=== PATIENT | male | born 1975 | race Caucasian/White ===

== ENCOUNTER 2017-11-09 20:35 | Emergency (ER) | payer OTHER, MEDICAID, SELFPAY ==
[2017-11-09 20:37] VITALS: BP 126/94; PULSE 98; RESP 22; TEMP 37; O2SAT 96; BMI 32.1
[2017-11-09] MEDS: DiphenhydrAMINE 50 MG/ML Syringe 25 MG IV (21:05)
[2017-11-09] MEDS: MethylPREDNISolone 125 MG/2 ML Vial IV (21:06)
[2017-11-09 21:39] VITALS: BP 147/90; PULSE 83; RESP 18; O2SAT 98
[2017-11-09] MEDS: Acetaminophen 500 MG Tablet 1000 MG PO (21:42)
--- NOTE | 2017-11-09 22:00 | ED.DCSUM_ITS ---
- ER Visit Summary Date of Service: 11/09/17 Chief Complaint: Bee sting History of Present Illness: The patient is a 42 M who says he has done by a bee about 1 hour ago. He was done on the head face and arm. He does have a history of an allergy to bee stings. His EpiPen is so he did not use it. He states he has itching, headache, throat feels tight and itchy. Denies any shortness of breath or tongue swelling. Physical Examination: Vital signs reviewed. HEENT exam unremarkable. Heart is regular rate and rhythm without murmurs. Lungs are clear to auscultation. Abdomen is soft and nontender. Extremities reveal no edema. Skin exam normal. Neurologic exam normal. Test Results: None performed Emergency Department Course and Treatment: Patient was given Solu-Medrol and IV Benadryl. He feels much better except for the headache. He was given Tylenol for this. He will continue Tylenol at home as needed for pain. He will take Benadryl at home. He will need to follow-up with his PCP Treatment Plan: [] Disposition: Discharge Impression: Allergic reaction to bee sting This note was generated with Intellik[employer] dictation software. It may contain incorrect words, spelling, and punctuation that were not noted in review of the chart prior to signing ED Disposition - Plan for ED Patient: Chief Complaint: Allergic Reaction Referrals: Care Physician,No Primary [Primary Care Provider] -
--- NOTE | 2017-11-09 22:00 | ED.DEP ---
ED Disposition - Plan for ED Patient: Disposition: Home or Assisted Living Chief Complaint: Allergic Reaction Instructions: ED Bite Sting Insect Gen Allergic React Referrals: Care Physician,No Primary [Primary Care Provider] -
[2017-11-09 22:12] VITALS: BP 158/99; PULSE 79; RESP 20; O2SAT 97
== END 2017-11-09 22:18 | disposition home or self-care (01) ==
PROVIDERS: Emergency Provider Emergency Medicine
DX: T63.441A Toxic effect of venom of bees, accidental (unintentional), initial encounter (principal); L29.9 Pruritus, unspecified; Z79.899 Other long term (current) drug therapy
CPT/HCPCS: 96374; 96375; 99284; A4216

== ENCOUNTER → 2018-02-15 15:32 | Outpatient (CLI) | payer MEDICAID, SELFPAY ==
[2018-02-15 17:39] LABS: Absolute Neutrophil Count 3.7 X10^3/uL (2.0-7.7); Basophil# 0.02 X10^3/uL; Basophil% 0.3 % (0-1); Hematocrit 50.3 % (40-54); Hemoglobin 16.8 g/dl (13.0-16.5); Lymphocyte % 33.3 % (19-41); Mean Corp Hgb Conc 33.4 g/gl (32-36); Mean Corpuscular Hgb 29.6 pg (27.0-32.0); Mean Corpuscular Volume 88.7 fL (80-94); Mean Platelet Vol. 10.4 fl (6.2-12.0); Monocyte# 0.46 X10^3/uL; Neutrophil # 3.71 X10^3/uL (2.7-7.7); Neutrophil % 56.1 % (47-70); POSITIVE COUNT NO; POSITIVE DIFFERENTIAL NO; POSITIVE MORPHOLOGY NO; Platelet Count 236 K/mm3 (150-450); RBC Distribution Width CV 12.2 % (11.6-14.6); RBC Distribution Width SD 38.7 fl (35.1-43.9); Red Blood Count 5.67 M/mm3 (4.6-6.2); White Blood Count 6.6 K/mm3 (4.4-11.0)
[2018-02-15 17:59] LABS: ALB/GLOB Ratio 0.9 RATIO (0.9-2.4); AST(SGOT) 29 U/L (15-37); Alanine Aminotransfer ALT/SGPT 50 U/L (16-61); Albumin, Serum 3.8 g/dL (3.2-5.0); Alkaline Phosphatase 68 U/L (45-117); Anion Gap 9 (5-15); BUN 17 mg/dL (7-18); BUN/Creat Ratio 15.9 RATIO (10-20); Calcium,Total 8.9 mg/dL (8.5-10.1); Chloride 106 mmol/L (98-107); Cholesterol 204 mg/dL (200); Creatinine, Serum 1.07 mg/dL (0.70-1.30); EST Glomerular Filtration Rate 80 mL/min (>60); Est Glom Filt Rate - Afr Amer 97 mL/min (>60); Globulin 4.4 g/dL (2.2-4.2); Glucose 86 mg/dL (74-106); High Density Lipoprotein 39 mg/dL; Protein, Total 8.2 g/dL (6.4-8.2); Sodium Level 139 mmol/L (136-145); Triglycerides 177 mg/dL; Very Low Density Lipoprotein 35 mg/dL (5-40)
== END ==
PROVIDERS: Visit Provider Family Medicine
DX: K21.9 Gastro-esophageal reflux disease without esophagitis (principal); E66.9 Obesity, unspecified; F41.9 Anxiety disorder, unspecified
CPT/HCPCS: 36415; 80053; 80061; 84443; 85025

== ENCOUNTER → 2018-04-05 14:21 | Outpatient (CLI) | payer OTHER, SELFPAY ==
--- NOTE | 2018-04-05 14:25 | RAD_ITS ---
STUDY: X-RAY - RIGHT SHOULDER REASON FOR EXAM: Male, 42 years old. Right shoulder pain. TECHNIQUE: 4 view(s) of the shoulder. COMPARISON: None. FINDINGS: Normal glenohumeral articulation. Normal acromioclavicular joint. Normal acromion. Normal humeral head and visualized proximal humerus. The soft tissue structures are unremarkable. There is no demonstrated fracture. Normal visualized pulmonary apex. RAD/Shoulder min 2 Views IMPRESSION: Normal x-ray examination of the shoulder. Electronically Signed: Donovan Mccarthy MD at 23:58 EST , Service support ,
== END ==
PROVIDERS: Family Provider Family Medicine; PCP Family Medicine; Referring Provider Family Medicine; Visit Provider Family Medicine
DX: M75.40 Impingement syndrome of unspecified shoulder (principal)
CPT/HCPCS: 73030

== ENCOUNTER → 2019-05-03 09:44 | Outpatient (CLI) | payer OTHER, SELFPAY ==
[2019-04-22 10:17] VITALS: BMI 32.1
--- NOTE | 2019-05-03 09:48 | RAD_ITS ---
STUDY: X-RAY CHEST REASON FOR EXAM: Male, 43 years old. acute bronchitis TECHNIQUE: Frontal and lateral views of the chest were performed COMPARISON: None. FINDINGS: The lungs are clear and expanded. There is no demonstrated pleural abnormality. Normal size heart. Normal mediastinum and reinier. Normal visualized pulmonary arteries. Normal visualized aortic arch and descending thoracic aorta. Normal visualized thoracic spine. Normal visualized ribs, clavicles, and shoulders. There is no demonstrated abnormality of the visualized soft tissue structures of the upper abdomen. RAD/Chest PA and Lateral IMPRESSION: Normal x-ray examination of the chest. Electronically Signed: Jewels Zeng, at 16:52 EST Tel , Service support ,
== END ==
PROVIDERS: PCP Family Medicine; Referring Provider Family Medicine; Visit Provider Family Medicine
DX: J20.9 Acute bronchitis, unspecified (principal)
CPT/HCPCS: 71046

== ENCOUNTER → 2019-08-16 | Outpatient (CLI) | payer MEDICAID, SELFPAY ==
[2019-04-22 10:17] VITALS: BMI 32.1
--- NOTE | 2019-08-16 16:59 | RAD_ITS ---
STUDY: X-RAY - LEFT SHOULDER REASON FOR EXAM: Male, 44 years old. left shoulder pain TECHNIQUE: 4 view(s) of the shoulder. COMPARISON: None. FINDINGS: Normal glenohumeral articulation. Normal acromioclavicular joint. Normal acromion. Normal humeral head and visualized proximal humerus. The soft tissue structures are unremarkable. Normal visualized pulmonary apex. RAD/Shoulder min 2 Views IMPRESSION: Normal x-ray examination of the shoulder. Electronically Signed: Adrián Escudero MD at 21:47 EDT Tel , Service support ,
== END | disposition home or self-care (01) ==
LOC: MTRAD 16:57
PROVIDERS: PCP Family Medicine; Referring Provider Family Medicine; Visit Provider Family Medicine
DX: M25.512 Pain in left shoulder (principal)
CPT/HCPCS: 73030

== ENCOUNTER 2021-05-26 12:04 | Outpatient (CLI) | payer OTHER, MEDICAID, SELFPAY ==
--- NOTE | 2021-05-26 12:08 | RAD_ITS ---
STUDY: X-RAY CHEST REASON FOR EXAM: Male, 45 years old. CHEST PAIN PNEUMONIA POST COVID SYNDROME TECHNIQUE: XR Chest 2 Views COMPARISON: None FINDINGS: There is no demonstrated pleural abnormality. Normal size heart. Normal mediastinum and reinier. Normal visualized pulmonary arteries. Normal visualized aortic arch and descending thoracic aorta. There are diffuse degenerative changes of the visualized thoracic spine. There is degenerative osteoarthritis of the bilateral shoulders. There is no demonstrated abnormality of the visualized soft tissue structures of the upper abdomen. RAD/Chest PA and Lateral IMPRESSION: There are no acute findings. Electronically Signed: Noah Arellaon MD at 15:21 EST ,
== END 2021-05-26 23:59 | disposition home or self-care (01) ==
LOC: MTRAD 12:07
PROVIDERS: PCP Family Medicine; Referring Provider Family Medicine; Visit Provider Family Medicine
DX: U09.9 Post COVID-19 condition, unspecified (principal)
CPT/HCPCS: 71046

== ENCOUNTER → 2021-12-09 | Outpatient (CLI) | payer OTHER, MEDICAID, SELFPAY ==
--- NOTE | 2021-12-09 12:45 | MRI_ITS ---
STUDY: MRI LEFT SHOULDER REASON FOR EXAM: Left shoulder pain from dislocation 11/23/2021. TECHNIQUE: Standardized fat and water weighted pulse sequences were obtained in all 3 orthogonal planes. COMPARISON: Radiographs 08/16/2019. FINDINGS: Normal supraspinatus tendon. Normal infraspinatus tendon. Normal subscapularis tendon. Normal teres minor tendon. Normal supraspinatus muscle. Normal infraspinatus muscle. Normal subscapularis muscle. There is a strain of the teres minor muscle (T2 coronal images 18, 19). There is a small glenohumeral joint effusion. There is a reverse Hill-Sachs lesion with bone edema (proton-density axial images 12-14). Normal biceps labral complex. Normal intracapsular long biceps tendon. There is a posterior labral tear (proton-density axial images 1212-16). There is a bone contusion of the posterior glenoid (T2 coronal images 12, 13). There is a sprain of the posterior aspect of the inferior glenohumeral ligament (T2 coronal images 12-14). There is acromioclavicular arthrosis with mild hypertrophic changes effacing subacromial fat (T2 sagittal image 7). There is a Type II morphology (curved), with a neutral orientation. There is no subacromial-subdeltoid bursal fluid. Normal visualized coracohumeral and coracoacromial ligaments. Normal deltoid muscle. Normal trapezius muscle. MRI/Upper Ext Joint Only(Routine) IMPRESSION: Posterior labral tear and bone contusion of the posterior glenoid. Reverse Hill-Sachs lesion. Sprain of the posterior aspect of the inferior glenohumeral ligament. Teres minor muscle strain. Acromioclavicular arthrosis. Small glenohumeral joint effusion. Electronically Signed: Tobias Leigh MD at 13:58 EDT ,
== END | disposition home or self-care (01) ==
LOC: MRI 12:35
PROVIDERS: PCP Family Medicine; Referring Provider Specialist; Visit Provider Specialist
DX: S43.025A Posterior dislocation of left humerus, initial encounter (principal)
CPT/HCPCS: 73221

== ENCOUNTER 2021-12-11 09:30 | Outpatient (RCR) | payer OTHER, MEDICAID, SELFPAY ==
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
--- NOTE | 2022-01-20 16:04 | HP.PT.NRP ---
GINNA SANATNA was seen in my office for initial evaluation on 12/03/21. The following Plan of Care was established for this patient: Initial Frequency: 2-3x /Week Initial Duration: 4-6 Weeks Patient/Client Instruction: Educate patient on: Condition, Plan of Care For the Purpose of:: To decrease pain, To increase ROM, To improve muscle performance and motor function, To improve ability to perform ADL's, To increase tolerance to activity/condition/position, To improve ability of physical actions for home/community/work/leisure, To improve health of tissue, To decrease soft tissue restriction, To increase flexibility/ROM, To reduce risk of recurrence, To prevent re-injury, To improve tolerance to ADL's Therapeutic Exercise to Include: Strength training, Passive ROM, Active ROM, Scapular Strength/Stabilization For the Purpose of:: To decrease pain, To increase ROM, To improve muscle performance and motor function, To improve ability to perform ADL's, To increase tolerance to activity/condition/position, To improve performance and independence with ADL's, To improve ability of physical actions for home/community/work/leisure, To improve health of tissue, To decrease soft tissue restriction, To increase flexibility/ROM, To prevent re-injury, To improve tolerance to ADL's TENS: Yes IF ES: Yes Cryotherapy (ice pack, ice massage): Yes Thermo therapy (hot pack): Yes Ultrasound (thermal/non thermal): Yes For the Purpose of:: To decrease pain, To increase ROM, To improve nutrient delivery to tissue, To increase oxygenation perfusion, To improve health of tissue, To decrease soft tissue restriction This patient was last seen in our office . Pertinent comments regarding their Physical therapy will appear below: Patient had posterior labral tear thus underwent surgery thus d/c At this point I will be discontinuing this patient from physical therapy. I would be happy to see this patient again in the future if found appropriate by the physician. Thank you! Jovanny Escobar, PT, Cert MDT, OCS Balance/Gait/Functional tests - Balance/Special Test Scores Quick DASH Score: 90.9075
== END 2021-12-11 19:00 | disposition home or self-care (01) ==
LOC: PT 09:30
PROVIDERS: PCP Family Medicine; Referring Provider Specialist; Visit Provider Specialist
DX: S43.025 Posterior dislocation of left humerus (principal); X58.XXXD Exposure to other specified factors, subsequent encounter
CPT/HCPCS: 97161

== ENCOUNTER 2022-01-06 12:42 | Day surgery (SDC) | payer OTHER, MEDICAID, SELFPAY ==
[2022-01-06] VITALS (10 sets, daily range): BP systolic 128–190; BP diastolic 90–150; PULSE 66–108; RESP 16–24; TEMP 36.3–36.8; O2SAT 91–100; BMI 34.3
[2022-01-06] MEDS: Lactated Ringers 1,000 ML 15 ML IV (13:09)
[2022-01-06] MEDS: Cefazolin 2 GM in 0.9% Normal Saline 100 ML IV (14:07)
[2022-01-06] MEDS: Epinephrine (1 mg/ml) 1 MG/ML VIAL (14:45)
--- NOTE | 2022-01-06 17:45 | SUR.PHASEI ---
PATIENT STATES INCONTINENT OF STOOL ON PACU ARRIVAL, CONTINUES TO PASS STOOL. C/O LEFT SHOULDER PAIN, CONTINUES TO C/O NAUSEA.
--- NOTE | 2022-01-06 17:47 | DCINST_ITS ---
Discharge Instructions Follow Up Care Test Results: Test results from this visit will be discussed in further detail at your follow- up appointment, if applicable. Discharge Plan Admission Primary Reason for Your Visit: Left shoulder surgery Attending Provider: Jeffy Owen Primary Care Provider: Yusuf Nassar Instructions Additional Instructions / Restrictions: Follow preprinted instructions from your surgeons office. Discharge Orders/Prescriptions Prescriptions: New oxycodone 5 mg tablet 7.5 mg PO Q6H PRN (Reason: pain) 7 Days Qty: 42 0RF Continued acetaminophen 325 mg Tablet 650 mg PO Q4H PRN (Reason: Pain) Discontinued tramadol 50 mg tablet 50 mg PO Q8 PRN (Reason: Pain) Label Comments: TAKE 1 TO 2 TABLETS BY MOUTH EVERY 8 HOURS NEEDED FOR PAIN FOR UP TO 7 DAYS Referrals / Follow Up: Yusuf Nassar MD [Primary Care Provider] - Jeffy Owen DO [Med Staff - Active Staff] - Within 2 Weeks Disposition Disposition (needs filled in before D/C Order can be placed): Home, Self Care
--- NOTE | 2022-01-06 17:47 | PCM.OPRPT ---
Report of Operation Date of Procedure: 01/06/22 Description of Surgical Findings:: Preoperative diagnosis: 1. Left posterior glenohumeral instability with posterior labral tear and reverse Hill-Sachs humeral lesion Postoperative diagnosis: 1. Left posterior glenohumeral instability with posterior labral tear and reverse Hill-Sachs humeral lesion Procedure: 1. Diagnostic and operative left shoulder arthroscopy with posterior labral repair 2. Arthroscopic reverse remplissage with subscapularis tenodesis into reverse Hill-Sachs lesion Primary Surgeon: Jeffy Owen DO Stereoptician: CORY San Anesthesia: General LMA with interscalene block Anesthesiologist: Dr. Mckeon Complications: None apparent Specimen: None Estimated blood loss: 10 cc IV fluids: Per anesthesia record Urine output: None Packing/drains: None Implants: Arthrex 1.8 mm fiber tack suture anchors x3 Intraoperative findings: Posterior glenoid labral tearing with labral tear from the 3 to 6 o'clock position, reverse Hill-Sachs lesion, posterior glenoid articular full-thickness cartilage injury 5 x 5 mm Preoperative indications: This is a 46-year-old male seen in the outpatient setting after a posterior glenohumeral dislocation approximately 6 weeks ago. Patient was immobilized in a sling for approximately 2 weeks and then certain therapy. Patient did not tolerate therapy. He was referred to my office. I discussed further nonoperative management versus operative intervention. Operative invention was selected in the form of left shoulder posterior glenoid labral repair and possible reverse remplissage into a reverse Hill-Sachs lesion. The risks, benefits, alternatives to procedure reviewed with patient at length. He agreed to proceed. Risks included but were not limited to bleeding, infection, loss of life or limb, need for additional surgery, persistent pain, persistent instability, posttraumatic arthritis, post surgical and posttraumatic stiffness, neurovascular injury, DVT or PE. Informed sent obtained in the office. Description of procedure: Patient was identified in the preoperative holding area by name, medical record number, and date of . Informed consent was confirmed with the patient. The operative extremity was marked with a surgical marker. All questions were answered to the patient's satisfaction. An interscalene block was administered prior to the procedure by the anesthesia staff. At time of his procedure, patient was brought to the operative suite and positioned supine a standard operating table. General anesthesia was induced and LMA placed. Patient was then positioned in lateral decubitus position with the left side up. Axillary roll was placed in the patient's right axilla. The down leg fibular head was free using a blanket. Blankets were placed between the patient's legs. He was held in the lateral position using a beanbag positioner. We then spun the bed approximately 30 degrees. The left upper extremity was prepped and draped in a normal, sterile orthopedic fashion. We performed timeout with all parties in attendance in agreement the side, site, operation be performed. 2 g Ancef was administered prior to incision by anesthesia staff. No concerns were voiced and would like to proceed with surgery at this point. An exam under anesthesia was performed demonstrated significant posterior laxity however is unable to fully dislocate the shoulder. We placed the left upper extremity in traction utilizing 15 pounds of traction throughout the case. I first commenced surgery with establishing a standard posterior portal approximately 2 fingerbreadths inferior and medial to the posterior lateral border the acromion. Skin was sharply incised and the blade scalpel. Blunt tipped trocar and arthroscopic cannula was driven in the glenohumeral joint. Trocar was exchanged for the arthroscope. We then established a standard anterior portal just superior to the subscapularis using localization with a spinal needle. Skin was sharply incised in similar fashion. I placed a rigid cannula through the anterior portal for ease of instrument and suture passing. I commenced diagnostic arthroscopy. The humeral head cartilage appeared pristine other than a reverse Hill-Sachs lesion measuring 1 x 1 cm just superior to the insertion of the subscapularis. The biceps anchor and superior labrum appeared pristine. Anterior labrum was pristine. Subscapularis and undersurface of the rotator cuff appeared pristine. There were no loose bodies identified. The posterior labrum was examined. Tearing and capsulitis was noted posteriorly. The glenoid labral tear appeared to extend from the 3 to 6 o'clock position. I then established a accessory posterior portal approximately 2 fingerbreadths inferior to the posterior portal using spinal needle localization. Skin was sharply incised and a switching stick was used to dilate and eventually passed the rigid cannula. I then selected a position at approximately the 5 o'clock position on the labrum to drill for a 1.8 mm all suture fiber tack anchor from Arthrex. This was drilled at the rim of the glenoid oblique to the surface. Drill guide was held in place after the drill was removed and suture was placed per shell core and molding supervisor recommendations. I allowed the suture anchor to set with axial traction on the suture. I then used a curved suture lasso to capture posterior capsule and the posterior labrum in this position to retention the posterior capsule and recreate the bumper effect of the posterior labrum. Working suture from the anchor was passed through the suture lasso loop and retrieved out the posterior portal. I then retrieved the passing suture from the anchor and passed the working suture through the suture anchor. Suture was tensioned and cut flush with the suture anchor achieving reapproximation of the labrum and retensioning posterior capsule. In similar fashion, an additional anchor was placed near the 3 o'clock position of the glenoid. Sutures were passed in similar fashion as above with good reapproximation of the glenoid labrum and retensioning the posterior capsule. The posterior capsule had retention at this point and I was unable to pass instruments in the posterior joint space which suggested sufficiency of the posterior labral repair. I then turned attention back anteriorly. The reverse Hill-Sachs lesion appeared to engage the glenoid with internal rotation of the upper extremity. I elected to place a fiber tack anchor within the defect to perform a reverse remplissage using the subscapularis tendon. I placed the drill and drill guide through the anterior portal. Drill was removed and suture anchor was placed. I tensioned the sutures. I passed the suture lasso through the superior third of the subscapularis. I retrieved the suture lasso and working suture from the anchor which was passed through the subscapularis. I then passed the working suture through the passing suture. I then tensioned the working suture achieving remplissage effect of the subscapularis into the reverse Hill-Sachs lesion. Final arthroscopic images were obtained. Portal sites were closed in standard fashion with [id number] 4-0 nylon suture. Bulky sterile compression dressing was applied. Patient tolerated procedure well without apparent complication. He was repositioned in supine position. He was placed in an external rotation sling. He was safely extubated in the operative suite and transferred to PACU in stable condition. Postoperative plan: Patient will be discharged home today after meeting same-day surgery criteria. He is to follow-up in 2 weeks as instructed. Okay to shower in 2 days. Aspirin 81 mg twice daily for DVT prophylaxis. Prescription for oxycodone sent to his pharmacy. Tylenol and ibuprofen advised. Written instructions provided. Nonweightbearing operative extremity. Remove sling only for hygiene. Gentle pendulums only for range of motion.
[2022-01-06] MEDS: Ketorolac 30 MG/ML Syringe IV (18:10)
[2022-01-06] MEDS: oxyCODONE 5 MG Tablet 10 MG PO (20:07)
== END 2022-01-06 20:50 | disposition home or self-care (01) ==
LOC: SDC 12:46 → AC 12:47
PROVIDERS: PCP Family Medicine; Referring Provider Student in an Organized Health Care Education/Training Program; Visit Provider Student in an Organized Health Care Education/Training Program
PROC: (CPT 29827; principal; 2022-01-06 13:50)
DX: S43.432A Superior glenoid labrum lesion of left shoulder, initial encounter (principal); S43.025A Posterior dislocation of left humerus, initial encounter; V99.XXXA Unspecified transport accident, initial encounter; Z87.891 Personal history of nicotine dependence; R03.0 Elevated blood-pressure reading, without diagnosis of hypertension; E66.8 Other obesity; Z68.35 Body mass index [BMI] 35.0-35.9, adult
CPT/HCPCS: 29807; 29999; 64415; 01630; C1713; J7120; J2405

== ENCOUNTER 2022-07-15 09:30 | Outpatient (RCR) | payer MEDICAID, OTHER, SELFPAY ==
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
--- NOTE | 2022-04-08 10:48 | HP.PTREVAL_ITS ---
Dr. Jeffy Owen, DO, It has been my pleasure to treat GINNA SANTANA over the last 21 visits for L post dislocation L humerus, s/p labral repair 01/06/22. Please see the progress note below for an update on the physical therapy plan of care! Subjective: Doctor said good things and he is right where he should be, strength is decent. Pt is comfortable at rest. Eating and drinking with L hand. Starting to use it at home. Avoid increasing pain. Sleeping is not great and doctor says that is the nature of this. HEP: supine stick flexion, supinee stick er. seated stick abduction, seated flexion with stick . Has not started strengthening at home yet. Objective/Function: 90 flexion and ABD AROM 30 er, PSIS IR. PROM 130 flexion, 45 er and 60 IR at 80 abd, all with firm endfeel and painful. Strength er L is 3, IR 3+, flexion 3 in available ROM,. unable to put L hand behind head. Overall feels like shoulder frozen and weak but progressing slowly. Appropriate to continue 2x/week x 4 and fair prognosis Plan Plan: 2x/week for 4 weeks for. 1. progress to band phase 3 gently and to HEP,. 2. Focus on manual PROM and g-h joint mobs to L shoulder for ROM. Balance/Gait/Functional tests - Balance/Special Test Scores Quick DASH Score: 84.0900 Goals Goal 1:: ST: AROM to 150 adn ext rotation to 50 as protocol allows Goal Time Frame: 4-6 Weeks Goal Progress: approp Goal 2:: IR to 45 degrees at 30 abduction Goal Time Frame: 6-8 Weeks Goal Progress: approp still Goal 3:: Pain 0-1/10 at all times and manageable Goal Time Frame: 4-6 Weeks Goal Progress: Goal Met Goal 4:: Patient feel 80% back to normal Goal Time Frame: 8-12 Weeks Goal Progress: Goal Met Goal 5:: quick dash score 15 or better Goal Time Frame: 8-12 Weeks Goal Progress: approp Goal 6:: put hand on head without pain Goal Time Frame: 4-6 Weeks Goal Progress: NEW GOAL Anticipated Interventions Patient/Client Instruction: Educate patient on: Condition, Plan of Care For the Purpose of:: To decrease pain, To increase ROM, To improve muscle performance and motor function, To increase tolerance to activity/condition/position, To improve ability of physical actions for home/community/work/leisure Therapeutic Exercise to Include: Strength training, Postural training, Passive ROM, Active ROM For the Purpose of:: To decrease pain, To increase ROM, To improve muscle performance and motor function, To increase tolerance to activity/condition/pos ition, To improve performance and independence with ADL's Manual Therapy Techniques to Include: Scar massage, Passive ROM For the Purpose of:: To decrease pain, To increase ROM TENS: Yes Cryotherapy (ice pack, ice massage): Yes For the Purpose of:: To decrease pain, To increase ROM Please do not hesitate to contact me at [phone] by phone or if you have questions or concerns regarding this new plan of care! Sincerely, Joshua Gomez, DPT, OCS, CSCS
--- NOTE | 2022-05-17 10:25 | HP.PTREVAL ---
Dr. Jeffy Owen, DO, It has been my pleasure to treat GINNA SANTANA over the last 29 visits for L post dislocation L humerus, s/p labral repair 01/06/22. Please see the progress note below for an update on the physical therapy plan of care! Subjective: Progressing slowly. Overall 60% better. End range is still tight. doctor says he is good for now, needs more strength. Normal activities in ROM are 1/10 and always has a bit, pain with reaching can be 8/10. 6/10 at home with working in garage and reaching overhead. Has to hold L arm up some times with R. Sleep is OK but it hurts if in one [id number] alot, toss and turns.To doctor Jun 07. Not going back to work until after sees doctor adn he thinks July. 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 Objective/Function: 120 AROM flexion adn 110 abduction, 48 ext rotation and slowly to L5 IR. PROM 138 with great OP flexion and 130 PROm abd, er to 50 and IR to 70 and 80 abd. strength is 4- L flexion and 3+ abduction, 4- ext rotation and 4 IR. pain with flex, abd and ext rotation. Overall improving strength adn AROM but PROM stagnant and need to be more aggressive. 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 Plan Plan: 2x/week for 4-8 weeks . 1. Aggressive manaul therapy and grade 4 g-h and scapular joint mobs. 2. gym based strength and progresion of phase 3 band exercises via HEP, add PH strength and WB ex. Balance/Gait/Functional tests - Balance/Special Test Scores Quick DASH Score: 56.8175 Goals Goal 1:: ST: AROM to 150 adn ext rotation to 50 as protocol allows Goal Time Frame: 4-6 Weeks Goal Progress: approp Goal 2:: IR to 45 degrees at 30 abduction Goal Time Frame: 6-8 Weeks Goal Progress: approp still Goal 3:: turn car wheel effectively without pain to facilitate RTW Goal Time Frame: 6-8 Weeks Goal Progress: Goal Met Goal 4:: Patient do hair and tuck in shirt without hesitation Goal Time Frame: 6-8 Weeks Goal Progress: NEW GOAL Goal 5:: quick dash score 15 or better Goal Time Frame: 8-12 Weeks Goal Progress: approp Goal 6:: put hand on head without pain Goal Time Frame: 4-6 Weeks Goal Progress: approp, still slow Anticipated Interventions Patient/Client Instruction: Educate patient on: Condition, Plan of Care For the Purpose of:: To decrease pain, To increase ROM, To improve muscle performance and motor function, To increase tolerance to activity/condition/position, To improve ability of physical actions for home/community/work/leisure Therapeutic Exercise to Include: Strength training, Postural training, Passive ROM, Active ROM For the Purpose of:: To decrease pain, To increase ROM, To improve muscle performance and motor function, To increase tolerance to activity/condition/position, To improve performance and independence with ADL's Manual Therapy Techniques to Include: Scar massage, Passive ROM For the Purpose of:: To decrease pain, To increase ROM TENS: Yes Cryotherapy (ice pack, ice massage): Yes For the Purpose of:: To decrease pain, To increase ROM Please do not hesitate to contact me at [phone] by phone or if you have questions or concerns regarding this new plan of care! Sincerely, Joshua Gomez, DPT, OCS, CSCS
--- NOTE | 2022-07-15 10:21 | HP.PTREVAL ---
Dr. Jeffy Owen, DO, It has been my pleasure to treat GINNA SANTANA over the last 38 visits for L post dislocation L humerus, s/p labral repair 01/06/22. Please see the progress note below for an update on the physical therapy plan of care! Subjective: Planning to get a membership to work out. Sees Dr. Owen tomorrow. Pain is not terrible. Relatively comfortable at rest. Stiff and sore with lifting sometimes. Sleeping lying on L side is not good but otherwise is OK. Pain at worsst is 9/10 with end range stretching. Transient pain. Can reach stuff easier overhead. Doing hair and tucking in shirt. 65% better overall. Tried backing car trailer in drivewaybut could not get all motion all the way around with L UE, still feels limited, no problem there with pain. Objective/Function: 40 ext rotation L, 125 flexion and abduction slow and adding er hurts, IR to L5, Strength in L shoulder is 4 abd, 4- flexion, 4- er, 4 in IR. Quick dash not better. % better improving. Still unable to turn wheel effectively in his mind to return to work due to ROM deficits. Overall motion is not improving, strength and pain are slowly improving with his strengthening program which he can continue himself and should. Plan Plan: Pt to doctor for other options on ROM which is not improving and should continue strength I. Pt will call after doctor visit if needs mre therapy after other options. I would recommend more therapy only if manip or other changes to patients condition as he can continue his strength on his own at this point. Balance/Gait/Functional tests - Balance/Special Test Scores Quick DASH Score: 43.1800 Goals Goal 1:: ST: AROM to 150 adn ext rotation to 50 as protocol allows Goal Time Frame: 4-6 Weeks Goal Progress: Not Progressing Goal 2:: IR to 45 degrees at 30 abduction Goal Time Frame: 6-8 Weeks Goal Progress: Not Progressing Goal 3:: turn car wheel effectively without pain to facilitate RTW Goal Time Frame: 6-8 Weeks Goal Progress: Not Progressing Goal 4:: Patient do hair and tuck in shirt without hesitation Goal Time Frame: 6-8 Weeks Goal Progress: Goal Met Goal 5:: quick dash score 15 or better Goal Time Frame: 8-12 Weeks Goal Progress: Not Progressing Goal 6:: put hand on head without pain Goal Time Frame: 4-6 Weeks Goal Progress: hesitant and tight. Anticipated Interventions Patient/Client Instruction: Educate patient on: Condition, Plan of Care For the Purpose of:: To decrease pain, To increase ROM, To improve muscle performance and motor function, To increase tolerance to activity/condition/position, To improve ability of physical actions for home/community/work/leisure Therapeutic Exercise to Include: Strength training, Postural training, Passive ROM, Active ROM For the Purpose of:: To decrease pain, To increase ROM, To improve muscle performance and motor function, To increase tolerance to activity/condition/position, To improve performance and independence with ADL's Manual Therapy Techniques to Include: Scar massage, Passive ROM For the Purpose of:: To decrease pain, To increase ROM TENS: Yes Cryotherapy (ice pack, ice massage): Yes For the Purpose of:: To decrease pain, To increase ROM Please do not hesitate to contact me at [phone] by phone or if you have questions or concerns regarding this new plan of care! Sincerely, Joshua Gomez, DPT, OCS, CSCS
== END 2022-07-15 19:00 | disposition home or self-care (01) ==
LOC: PT 09:30
PROVIDERS: PCP Family Medicine; Referring Provider Student in an Organized Health Care Education/Training Program; Visit Provider Student in an Organized Health Care Education/Training Program
DX: S43.025 Posterior dislocation of left humerus (principal); S43.432D Superior glenoid labrum lesion of left shoulder, subsequent encounter
CPT/HCPCS: 97014; 97110; 97140; 97161; 97164; 97530; G0283

== ENCOUNTER → 2022-08-27 | Outpatient (CLI) | payer MEDICAID, SELFPAY ==
[2022-08-27 15:17] LABS: Color, Urine Yellow (Yellow); Glucose, Dipstick Normal (Normal); Ketone-Dipstick 5 mg/dl (Negative); Leukocyte Esterase-Dipstick 25 /ul (Negative); Nitrite-Dipstick Negative (Negative); Occult Blood-Urine 10 /ul (Negative); Protein-Dipstick 15 mg/dl (Negative); Specific Gravity, Urine 1.025 (1.002-1.030); Urine Bilirubin Dipstick Negative (Negative); Urine Clarity Clear (Clear); Urine Urobilinogen Normal (Normal)
[2022-08-27 15:23] LABS: Bacteria 1+ /hpf (None Seen); Mucous, Urine 1+ /hpf (<or=2+); Red Blood Cells-Urine 0-5 SEEN /hpf (0-5); Squamous Epithelial Cells - UA 0-5 SEEN /hpf (0-5); White Blood Cells 0-5 SEEN /hpf (0-5)
[2022-08-27 15:28] LABS: Absolute Lymphocyte Count 1.74 X10^3/uL (0.83-4.51); Absolute Neutrophil Count 4.4 X10^3/uL (2.0-7.7); Basophil# 0.04 X10^3/uL; Basophil% 0.6 % (0-1); Eosinophils% 2.8 % (0-5); Hematocrit 49.5 % (40-54); Hemoglobin 16.3 g/dL (13.0-16.5); Lymphocyte # 1.74 X10^3/ul (0.83-4.51); Lymphocyte % 24.5 % (19-41); Mean Corp Hgb Conc 32.9 g/dL (32-36); Mean Corpuscular Hgb 29.7 pg (27.0-32.0); Mean Corpuscular Volume 90.3 fL (80-94); Mean Platelet Vol. 10.2 fl (6.2-12.0); Monocyte# 0.67 X10^3/uL; Monocyte% 9.4 % (0-10); NRBC Flagged by Analyzer 0 % (0-5); Neutrophil # 4.38 X10^3/uL (2.7-7.7); Neutrophil % 61.6 % (47-70); Platelet Count 256 K/mm3 (150-450); RBC Distribution Width CV 12.2 % (11.6-14.6); RBC Distribution Width SD 40.3 fl (35.1-43.9); Red Blood Count 5.48 M/mm3 (4.6-6.2); White Blood Count 7.1 K/mm3 (4.4-11.0)
[2022-08-27 15:49] LABS: ALB/GLOB Ratio 0.9 RATIO (0.9-2.4); AST(SGOT) 22 U/L (15-37); Alanine Aminotransfer ALT/SGPT 43 U/L (16-61); Albumin, Serum 3.6 g/dL (3.2-5.0); Alkaline Phosphatase 72 U/L (45-117); Anion Gap 10 (5-15); BUN 20 mg/dL (7-18); BUN/Creat Ratio 16.9 RATIO (10-20); Chloride 105 mmol/L (98-107); Cholesterol 237 mg/dL (200); Creatinine, Serum 1.18 mg/dL (0.70-1.30); EST Glomerular Filtration Rate 70 mL/min (>60); Est Glom Filt Rate - Afr Amer 85 mL/min (>60); Glucose 121 mg/dL (74-106); High Density Lipoprotein 38 mg/dL; Potassium 3.8 mmol/L (3.5-5.1); Protein, Total 7.6 g/dL (6.4-8.2); Sodium Level 140 mmol/L (136-145); Thyroid Stim Hormone (TSH) 0.78 uIU/mL (0.358-3.74); Triglycerides 428 mg/dL
== END | disposition home or self-care (01) ==
LOC: MTLAB 12:48
PROVIDERS: PCP Family Medicine; Referring Provider Family Medicine; Visit Provider Family Medicine
DX: I10 Essential (primary) hypertension (principal)
CPT/HCPCS: 80053; 80061; 81001; 84443; 85025

== ENCOUNTER → 2022-09-01 | Outpatient (CLI) | payer MEDICAID, SELFPAY ==
[2022-09-01 10:46] LABS: Cholesterol 215 mg/dL (200); High Density Lipoprotein 39 mg/dL; Triglycerides 350 mg/dL; Very Low Density Lipoprotein 70 mg/dL (5-40)
[2022-09-01 11:14] LABS: Hemoglobin A1c 5.6 % (3.8-5.6)
== END | disposition home or self-care (01) ==
LOC: MFPLAB 08:52
PROVIDERS: PCP Family Medicine; Visit Provider Family Medicine
DX: R73.09 Other abnormal glucose (principal); E78.1 Pure hyperglyceridemia
CPT/HCPCS: 36415; 80061; 83036

== ENCOUNTER 2022-10-04 10:30 | Outpatient (RCR) | payer MEDICAID, SELFPAY ==
--- NOTE | 2022-08-20 12:09 | HP.PTREVAL ---
Dr. Jeffy Owen, DO, It has been my pleasure to treat GINNA SANTANA over the last 49 visits for L post dislocation L humerus, s/p labral repair 01/06/22. Please see the progress note below for an update on the physical therapy plan of care! Subjective: Pain is not too bad, sometimes sleeping is an issue over last week. Comfortable at rest. Up to 3/10 with exercises only. Sit too long without moving can give him soreness and sometimes at night. ROM is much better than prior to manip. ROM is 75% better. Changed lightbulb last night. Getting exercises in at home. Not working. 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 HEP wall slide, supine stick abd and flexion, table flexion walk out. Objective/Function: 140 flexion, 135 abduction. 55 external rotation. ROM much improved. Strength OH is poor,. flexion slightly painful at 90 and 4- and 4- abduction but 3 above 120 degrees. painful. ER is 4- adn IR 4/5 in neutral. Overall much better than premanip and now needs to be stronger to attempt things he loves, and return to work. Progressing toward goals and they are still appropriate, new goal added and fair prognosis. 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 Plan Plan: 3x/week for 4 weeks for ensure ROM improves and OH strength L shoulder, return to phase 3 at home and gym ex. Balance/Gait/Functional tests - Balance/Special Test Scores Quick DASH Score: 31.8175 Goals Goal 1:: 155 active L shoulder elevation adn 65 active ext rotation and to L3 IR to help with ADLS. 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 Goal Time Frame: 4-6 Weeks Anticipated Interventions Therapeutic Exercise to Include: Strength training, Postural training, Flexibilty training, Passive ROM, Active ROM For the Purpose of:: To increase ROM, To improve muscle performance and motor function, To improve ability of physical actions for home/community/work/leisure Manual Therapy Techniques to Include: Mobilization, Passive ROM, Soft tissue mobilization For the Purpose of:: To increase ROM Cryotherapy (ice pack, ice massage): Yes Please do not hesitate to contact me at [phone] by phone or if you have questions or concerns regarding this new plan of care! Sincerely, Joshua Gomez, DPT, OCS, CSCS
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
== END 2022-10-04 13:21 | disposition home or self-care (01) ==
LOC: PT 10:30
PROVIDERS: PCP Family Medicine; Referring Provider Student in an Organized Health Care Education/Training Program; Visit Provider Student in an Organized Health Care Education/Training Program
DX: M25.612 Stiffness of left shoulder, not elsewhere classified (principal); S43.432D Superior glenoid labrum lesion of left shoulder, subsequent encounter; S43.025 Posterior dislocation of left humerus
CPT/HCPCS: 97014; 97110; 97140; 97164; 97530; G0283

== ENCOUNTER → 2024-02-28 | Outpatient (CLI) | payer MEDICAID, SELFPAY ==
--- NOTE | 2024-02-28 12:52 | RAD_ITS ---
INDICATION: sob, cough EXAMINATION/TECHNIQUE: X-RAY - XR Chest 2 Views COMPARISON: FINDINGS: LINES/DEVICES: None. LUNGS: No consolidation, edema or effusion. No pneumothorax. MEDIASTINUM AND CARDIOVASCULAR STRUCTURES: Cardiac silhouette not enlarged. Central airways and mediastinal contour are unremarkable. BONES AND SOFT TISSUES: Degenerative vertebral changes. RAD/Chest PA and Lateral IMPRESSION: No radiographic evidence of acute cardiopulmonary disease. Electronically Signed: Angelo Linda DO at 10:23 EST Reading Location ID and State: [facility] / [place] Tel [phone], Service support ,
== END | disposition home or self-care (01) ==
LOC: MTRAD 12:52
PROVIDERS: PCP Family Medicine; Referring Provider Family Medicine; Visit Provider Family Medicine
DX: K42.9 Umbilical hernia without obstruction or gangrene (principal); R06.09 Other forms of dyspnea
CPT/HCPCS: 71046

== ENCOUNTER → 2024-03-13 | Outpatient (CLI) | payer MEDICAID, SELFPAY ==
[2024-03-13 15:31] LABS: Absolute Lymphocyte Count 1.35 X10^3/uL (0.83-4.51); Absolute Neutrophil Count 9.2 X10^3/uL (2.0-7.7); Basophil# 0.07 X10^3/uL; Basophil% 0.6 % (0-1); Eosinophils% 2.5 % (0-5); Hematocrit 49.7 % (40-54); Hemoglobin 15.9 g/dL (13.0-16.5); Lymphocyte # 1.35 X10^3/ul (0.83-4.51); Lymphocyte % 11.1 % (19-41); Mean Corpuscular Hgb 28.9 pg (27.0-32.0); Mean Corpuscular Volume 90.4 fL (80-94); Mean Platelet Vol. 10.2 fl (6.2-12.0); Monocyte# 1.14 X10^3/uL; Monocyte% 9.4 % (0-10); NRBC Flagged by Analyzer 0 % (0-5); Platelet Count 249 K/mm3 (150-450); RBC Distribution Width CV 12.1 % (11.6-14.6); White Blood Count 12.1 K/mm3 (4.4-11.0)
[2024-03-13 15:56] LABS: ALB/GLOB Ratio 0.9 RATIO (0.9-2.4); AST(SGOT) 22 U/L (15-37); Alanine Aminotransfer ALT/SGPT 29 U/L (16-61); Albumin, Serum 3.6 g/dL (3.2-5.0); Alkaline Phosphatase 74 U/L (45-117); Anion Gap 7 (5-15); BUN 15 mg/dL (7-18); BUN/Creat Ratio 13.5 RATIO (10-20); Chloride 106 mmol/L (98-107); Cholesterol 198 mg/dL (200); Creatinine, Serum 1.11 mg/dL (0.70-1.30); EST Glomerular Filtration Rate 75 mL/min (>60); Est Glom Filt Rate - Afr Amer 90 mL/min (>60); Glucose 116 mg/dL (74-106); High Density Lipoprotein 42 mg/dL; Magnesium 2.2 mg/dL (1.6-2.6); Protein, Total 7.6 g/dL (6.4-8.2); Sodium Level 137 mmol/L (136-145); Thyroid Stim Hormone (TSH) 0.596 uIU/mL (0.358-3.740); Triglycerides 137 mg/dL; Very Low Density Lipoprotein 27 mg/dL (5-40)
[2024-03-14 09:54] LABS: Hemoglobin A1c 5.6 % (3.8-5.6)
== END | disposition home or self-care (01) ==
LOC: MFPLAB 12:15
PROVIDERS: PCP Family Medicine; Visit Provider Family Medicine
DX: I10 Essential (primary) hypertension (principal); R73.09 Other abnormal glucose
CPT/HCPCS: 36415; 80053; 80061; 83036; 83735; 84443; 85025

== ENCOUNTER → 2024-03-20 | Outpatient (CLI) | payer MEDICAID, SELFPAY ==
--- NOTE | 2024-03-20 11:21 | RAD_ITS ---
STUDY: X-RAY CHEST REASON FOR EXAM: Male, 48 years old. Coughing TECHNIQUE: PA and lateral views of the chest. COMPARISON: Comparison is made with prior study February 28, 2024. FINDINGS: The lungs are clear and expanded. There is no demonstrated pleural abnormality. Normal size heart. Normal mediastinum and reinier. Normal visualized pulmonary arteries. Normal visualized aortic arch and descending thoracic aorta. There are diffuse degenerative changes of the visualized thoracic spine. Normal visualized ribs, clavicles, and shoulders. There is no demonstrated abnormality of the visualized soft tissue structures of the upper abdomen. RAD/Chest PA and Lateral IMPRESSION: No acute abnormality is seen. Electronically Signed: Juan Ocasio MD at 9:20 EST ,
== END | disposition home or self-care (01) ==
LOC: MTRAD 11:21
PROVIDERS: PCP Family Medicine
DX: J18.9 Pneumonia, unspecified organism (principal)
CPT/HCPCS: 71046

== ENCOUNTER → 2024-03-28 | Outpatient (CLI) | payer MEDICAID, SELFPAY ==
--- NOTE | 2024-03-28 07:05 | CT_ITS ---
STUDY: CT ABDOMEN AND PELVIS WITH CONTRAST REASON FOR EXAM: Male, 48 years old. Umbilical hernia -- PO and IV contrast RADIATION DOSAGE (If Supplied By Facility): CTDIvol = ( 18.71 ) mGy, DLP = ( 1432.25 ) mGycm TECHNIQUE: Transaxial images were obtained from the dome of the diaphragm to the symphysis pubis with oral contrast. Oral and amp; IV Readi-CAT and amp; 100mL Isovue-370 was administered. Sagittal and coronal images were reconstructed. Individualized dose optimization techniques were used for this CT. COMPARISON: None. FINDINGS: The visualized lung bases are unremarkable. The visualized portions of the heart are within normal limits. There is decreased attenuation of the liver consistent with steatosis. 8 mm cyst in the anterior aspect of the right lobe of liver in the region of the dome of the liver. Normal gallbladder and extrahepatic biliary system. Normal spleen. Normal pancreas. Normal bilateral adrenal glands. Normal right kidney. Normal left kidney. There is a small hiatal hernia. Normal small intestine. Normal colon. The appendix is visualized and appears normal. Normal abdominal aorta. Normal inferior vena cava. Normal retroperitoneum. Normal urinary bladder. There is a small umbilical hernia containing fat. Small benign-appearing bilateral inguinal lymph nodes. Normal osseous structures. CT/Abdomen/Pelvis WITH Contrast IMPRESSION: Small umbilical hernia containing fat. Fatty infiltration of the liver. Subcentimeters cyst in the anterior superior aspect of the right lobe of the liver. Electronically Signed: Juan Ocasio MD at 11:10 EST ,
== END | disposition home or self-care (01) ==
PROVIDERS: PCP Family Medicine; Referring Provider Surgery; Visit Provider Surgery
DX: K42.9 Umbilical hernia without obstruction or gangrene (principal)
CPT/HCPCS: 74177; Q9967

== ENCOUNTER → 2024-03-30 | Outpatient (CLI) | payer MEDICAID, SELFPAY ==
--- NOTE | 2024-03-30 10:05 | US_ITS ---
INDICATION: RUQ pain, evaulate gallbladder EXAMINATION: Ultrasound US Abdomen Limited (quadrant) TECHNIQUE: Hand scale and color doppler imaging was performed of the right upper quadrant. COMPARISON: Prior study dated: CT abdomen pelvis 03/28/2024 FINDINGS: LIVER: 16.2 cm length. Increased echogenicity. Small simple cyst in the left lobe, 1.2 x 0.8 x 1.0 cm. GALLBLADDER Size: Distended. Stones: None. Wall thickness: Not thickened. 2 mm. Pericholecystic fluid: None. Sonographic Edwards sign: Negative. EXTRAHEPATIC BILE DUCTS: Common bile duct 3 mm not dilated. PANCREAS: Visualized portions unremarkable. RIGHT KIDNEY: No hydronephrosis. ASCITES: None. US/Abdomen Limited IMPRESSION: No acute findings. Fatty infiltration liver. Electronically Signed: Bekah Reina MD at 2:13 EST ,
== END | disposition home or self-care (01) ==
LOC: US 10:02
PROVIDERS: PCP Family Medicine; Referring Provider Family Medicine; Visit Provider Family Medicine
DX: R10.11 Right upper quadrant pain (principal)
CPT/HCPCS: 76705

== ENCOUNTER 2024-04-26 08:50 | Day surgery (SDC) | payer MEDICAID, SELFPAY ==
[2024-04-26] VITALS (13 sets, daily range): BP systolic 118–161; BP diastolic 74–98; PULSE 59–70; RESP 16–18; TEMP 36.2–36.7; O2SAT 88–97; BMI 37.5
--- NOTE | 2024-04-26 08:59 | EKG12_ITS ---
Test Reason : preop Blood Pressure : */* mmHG Vent. Rate : 60 BPM Atrial Rate : 60 BPM P-R Int : 162 ms QRS Dur : 98 ms QT Int : 418 ms P-R-T Axes : 49 25 34 degrees QTcB Int : 418 ms Normal sinus rhythm Normal ECG No previous ECGs available Confirmed by GISELA DAVID, ROSEANNA ([id number]), editor department MELONIE CHRISTIAN ([id number]) on 05/01/2024 6:01:28 AM Referred By: Manish To Confirmed By: ROSEANNA HIGGINS MD
--- NOTE | 2024-04-26 09:22 | PRE.ANES_ITS ---
ASA Classification* ASA Classification ASA Classification: 2 Assessment & Plan Anesthesia* Anesthesia Assessment Anesthesia Assessment: Discussed sedation and/or anesthesia options, risks, benefits, and alternatives with patient/parents/legal guardian/POA. Questions invited. The patient/parents/legal guardian/POA seems to understand and agrees to proceed with anesthesia plan. Reviewed the physical assessment, medical history, allergy history and patient home medications list prior to surgery/procedure/anesthetic and documented any changes. Performed airway and anesthesia risk assessments. Anesthesia Type Anesthesia Type: General Anesthesia Focused Assessment* Airway Assessment Mouth opens: >3 cm Mallampati Score: II Focused Labs Anesthesia Preop lab: CBC WBC 12.1 K/mm3 (4.4-11.0) H 03/13/24 12:15 RBC 5.50 M/mm3 (4.6-6.2) 03/13/24 12:15 Hgb 15.9 g/dL (13.0-16.5) 03/13/24 12:15 Hct 49.7 % (40-54) 03/13/24 12:15 Plt Count 249 K/mm3 (150-450) 03/13/24 12:15 CHEMISTRY Potassium 4.0 mmol/L (3.5-5.1) 03/13/24 12:15 Sodium 137 mmol/L (136-145) 03/13/24 12:15 Magnesium 2.2 mg/dL (1.6-2.6) 03/13/24 12:15 BUN 15 mg/dL (7-18) 03/13/24 12:15 Creatinine 1.11 mg/dL (0.70-1.30) 03/13/24 12:15 Glucose 116 mg/dL (74-106) H 03/13/24 12:15 TSH 0.596 uIU/mL (0.358-3.740) 03/13/24 12:15 COAG Pre-Assessment Diagnosis/Proposed Procedure Planned Operative Procedure(s): ROBOTIC ASSISTED UMBILICAL HERNIA REPAIR WITH MESH Anesthesia History Anesthesia History - chief of safety and protection: Anesthesia History - chief of safety and protection Hx Hospitalization No 04/16/24 13:26 Any Problems With Anesthesia No 04/16/24 13:26 Cholinesterase deficiency No 04/16/24 13:26 You/Your Family Experience No 04/16/24 13:26 fever (hyperthermia) with Relationship Recent Exposure to Contagious No 01/06/22 13:02 Disease Does patient have nerve No 04/16/24 13:26 stimulator Patient instructed to have device shut off --Does patient have Pacemaker or ICD? When Was Last Pacemaker Check QUESTION #4 FULL TEXT: You/Your Family Experience fever (hyperthermia) with Anesthesia Last Oral Intake Last Oral intake: Last Oral Intake NPO since Meds taken in AM with sips of water? Meds patient instructed to take am of surgery PONV PONV - chief of safety and protection: PONV - chief of safety and protection Female No 04/16/24 13:26 HX of Motion Sickness No 04/16/24 13:26 HX of N/V After Surgery No 04/16/24 13:26 Non-Smoker Yes 04/16/24 13:26 Duration of Surgery greater Yes 04/16/24 13:26 than 60 minutes Number of Risk Factors 2 04/16/24 13:26 PONV Score Moderate Risk 04/16/24 13:26 Height & Weight Height & Weight: Anesthesia: Height & Weight Height 5 ft 11 in 04/25/24 08:12 Weight: 124.284 kg 04/25/24 08:12 Respiratory Assessment Respiratory Assessment - chief of safety and protection: Respiratory Tract Infection Hx - chief of safety and protection Hx Respiratory Tract Infection Yes: PNEUMONIA/TREATED/ 04/16/24 13:26 RESOLVED STOP Sleep Apnea STOP Sleep Apnea - chief of safety and protection: STOP Sleep Apnea - chief of safety and protection Hx Hypertension Yes: CONTROLLED WITH MED 04/16/24 13:26 Hx Sleep Apnea No 04/16/24 13:26 CPAP BIPAP Do you snore loudly (louder No 04/16/24 13:26 than talking or can be heard Do you often feel tired/ No 04/16/24 13:26 fatigued/ sleepy during daytime? Has anyone observed you stop No 04/16/24 13:26 breathing during sleep? STOP Results Negative 04/16/24 13:26 QUESTION #5 FULL TEXT : Do you snore loudly (louder than talking or can be heard through closed doors)? 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 Specify any problems Hx of Preganancy in last 3 N/A 04/16/24 13:26 Months Nurse Filling Out Transfusion DSCHRIBER 04/16/24 13:26 & Questions: Date: 04/16/24 04/16/24 13:26 Time: :04/16/24 13:26 Patient unable to answer at this time (ie. confused, unrespo /Reproduction History /Reproductive History - chief of safety and protection: /Reproductive Hx- chief of safety and protection Hx Now No 04/16/24 13:26 Gestational Age (in weeks): EDC: Hx Hx Para Hx Section SAB No 04/16/24 13:26 Active Medications Active Medications: Current Medications Generic Name Dose Route Start Last Admin Trade Name Freq PRN Reason Stop Dose Admin Cefazolin Sodium 3 gm/ N/A 30 mls @ 600 mls/hr 04/26/24 10:35 IV 04/26/24 10:37 PREOP ONE Sodium Chloride 1,000 mls @ 15 mls/hr 04/26/24 09:00 IV 05/01/24 22:19 .Q48H [facility] Protocol PFSH Medical History Hypertension Shortness of breath on exertion Leg cramps Umbilical hernia Wears glasses Alcohol use Arthritis Back pain Injury of head and neck Gastric reflux Chewing tobacco nicotine dependence Complex regional pain syndrome History of irregular heartbeat Arthritis Home Medications ?Medication ?Instructions ?Recorded ?Last Taken ?Type albuterol sulfate 90 mcg/actuation 1 inh inhalation Q6H PRN PRN 03/07/24 Unknown History aerosol inhaler shortness of breath or wheezing epinephrine 0.3 mg/0.3 mL 0.3 ml IM PRN PRN anaphylaxis 03/07/24 Unknown History injection, auto-injector omeprazole 40 mg capsule,delayed 40 mg PO QDAY 03/07/24 04/25/24 History release propranolol 120 mg capsule,24 120 mg PO QHS 03/07/24 04/26/24 History hr,extended release Allergy/AdvReac Type Severity Reaction Status Date / Time bee venom protein (honey bee) Allergy Anaphylaxis Verified 04/26/24 09:14 Surgical History Hx of shoulder surgery Hx of shoulder surgery History of microdiscectomy Social History Smoking Status: Current every day smoker tobacco type: smokeless tobacco Smokeless tobacco user: chewing tobacco alcohol intake: never substance use type: does not use Review of Systems (Anesthesia) ROS Narrative System reviewed and no additional complaints, except as documented.
[2024-04-26] MEDS: 0.9% Normal Saline (1000mL) 1,000 ML 15 ML IV ×2 (09:27→13:43)
--- NOTE | 2024-04-26 09:42 | PCM.HP.STD ---
HPI - General General Date of Admission: 04/26/24 Date of Service: 04/26/24 Chief Complaint: Umbilical hernia HPI Narrative GINNA SANTANA, is a 48 M who presents today for elective umbilical hernia repair with mesh. Patient has been having periumbilical pain for some time. He was seen through the office and they recommended a robotic umbilical hernia repair with mesh [facility] Medical History Hypertension Shortness of breath on exertion Leg cramps Umbilical hernia Wears glasses Alcohol use Arthritis Back pain Injury of head and neck Gastric reflux Chewing tobacco nicotine dependence Complex regional pain syndrome History of irregular heartbeat Arthritis Home Medications ?Medication ?Instructions ?Recorded ?Last Taken ?Type albuterol sulfate 90 mcg/actuation 1 inh inhalation Q6H PRN PRN 03/07/24 Unknown History aerosol inhaler shortness of breath or wheezing epinephrine 0.3 mg/0.3 mL 0.3 ml IM PRN PRN anaphylaxis 03/07/24 Unknown History injection, auto-injector omeprazole 40 mg capsule,delayed 40 mg PO QDAY 03/07/24 04/25/24 History release propranolol 120 mg capsule,24 120 mg PO QHS 03/07/24 04/26/24 History hr,extended release Allergy/AdvReac Type Severity Reaction Status Date / Time bee venom protein (honey bee) Allergy Anaphylaxis Verified 04/26/24 09:14 Surgical History Hx of shoulder surgery Hx of shoulder surgery History of microdiscectomy Social History Smoking Status: Current every day smoker tobacco type: smokeless tobacco Smokeless tobacco user: chewing tobacco alcohol intake: never substance use type: does not use ROS Constitutional Constitutional: Reports systems reviewed and no addt'l complaints, except as documented Eyes Eyes: Reports systems reviewed and no addt'l complaints, except as documented ENT HEENT: Reports systems reviewed and no addt'l complaints, except as documented Cardiovascular Cardiovascular: Reports systems reviewed and no addt'l complaints, except as documented Respiratory/Chest Respiratory/Chest: Reports systems reviewed and no addt'l complaints, except as documented Gastrointestinal Gastrointestinal: Reports systems reviewed and no addt'l complaints, except as documented Musculoskeletal Musculoskeletal: Reports systems reviewed and no addt'l complaints, except as documented Vital Signs Vital Signs Vital Signs: 04/26/24 09:17 04/26/24 09:17 Temperature 98 F Temperature Source Temporal Pulse Rate 59 L Respiratory Rate 16 Respiratory Pattern Normal Blood Pressure 132/96 H Blood Pressure Mean 108 Blood Pressure Source Monitor Blood Pressure Position Semi-Fowlers Blood Pressure Location Left Arm Pulse Ox 96 Oxygen Delivery Method Room Air Weight Weight: 268 lb 15.423 oz Body Mass Index (BMI) 37.5 Physical Exam Narrative Umbilical hernia still present and tender with palpation Const alert, oriented x3 and no apparent distress Assessment & Plan Assessment/Plan (1) Umbilical hernia: PLAN: Patient is a 48-year-old male with an umbilical hernia. I have offered an umbilical hernia repair with mesh to be performed robotically. We discussed the details of the planned procedure and he wishes to proceed This will begin momentarily Charges/Coding Visit Charges Inpatient E&M: 43698 Init Hosp L1
[2024-04-26] MEDS: Cefazolin 3 GM in Syringe 1 EACH IV (10:17)
[2024-04-26] MEDS: Bupiv/Epi 0.25% 30 ML Vial (10:36)
--- NOTE | 2024-04-26 12:46 | PCM.POST.ANE ---
Anesthesia: Postop Eval I Current Vital Signs Temperature: 97.1 F Pulse Rate: 70 Blood Pressure: 161/98 Respiratory Rate: 16 Pulse Ox: 93 Oxygen Delivery Method: Room Air Assessment Airway patent: Yes Spontaneous unlabored respirations: Yes Mental status: Asleep nausea: No Vomiting: No Anesthesia Complication: No Fluid Hydration Crystalloid volume administer (ml): 800 Total IV fluid infused: 800 Progress Note Anesthesia document: Postop Eval 1 completed: Yes
--- NOTE | 2024-04-26 12:55 | DCINST_ITS ---
Discharge Instructions Diet Discharge Diet: Light diet - advance as tolerated Activity Discharge Activity: Return to Normal Activity and May Shower May shower in (days): 1 Ice area for (Minutes): 30 Dressing / Incision Call your doctor if your incision/area has: Continuous Slow Oozing, Sudden Increased Bleeding, Increased Pain/ Swelling, Increased Redness, Foul Smelling Discharge, Swelling at the incision site and - (Wear abdominal binder as needed for comfort) Call your doctor if you observe: Fever of 101 or Higher Cleanse incision/area with: Soap & Water Follow Up Care Please Follow Up With: Manish To MD When: 2 weeks Test Results: Test results from this visit will be discussed in further detail at your follow- up appointment, if applicable. Discharge Plan Admission Primary Reason for Your Visit: Umbilical hernia repair Attending Provider: Manish To Primary Care Provider: Yusuf Nassar Instructions Print Language: Martiniquais Discharge Orders/Prescriptions Prescriptions: New oxycodone-acetaminophen [Percocet] 5-325 mg tablet 1 tab PO Q8H PRN (Reason: pain) 3 Days Qty: 14 0RF Continued albuterol sulfate 90 mcg/actuation HFA aerosol inhaler 1 inh inhalation Q6H PRN PRN (Reason: shortness of breath or wheezing) propranolol 120 mg capsule,extended release 24 hr 120 mg PO QHS omeprazole 40 mg capsule,delayed release(DR/EC) 40 mg PO QDAY epinephrine 0.3 mg/0.3 mL auto-injector 0.3 ml IM PRN PRN (Reason: anaphylaxis) Referrals / Follow Up: Yusuf Nassar MD [Primary Care Provider] - Disposition Disposition (needs filled in before D/C Order can be placed): Home, Self Care
--- NOTE | 2024-04-26 13:01 | PCM.OPRPT ---
Problems Associated Problem List Diagnoses (1) Umbilical hernia: Procedures Digestive 40xxx-49xxx: 28656 RPR AA HRN 1ST < 3 NCR/STRN Operative Report (Standard) Operative Information Date of Procedure: 04/26/24 Pre-Operative Diagnosis: Umbilical hernia Post-Operative Diagnosis: Side Surgery/Procedure Performed: Robotic assisted umbilical hernia repair with mesh analytic manager: Yes Rehabilitation Therapy Aide: Mary Thacker Tasks completed by multimedia production assistant: Closing Type of Anesthesia: General RN Documented Start/Stop Times: Operation Date: 04/26/24 10:35 Case Time Into Pre-Op 04/26/24 08:59 Out of Pre-Op 04/26/24 10:03 Anesthesia Start 04/26/24 10:11 Into Room 04/26/24 10:11 Procedure Start 04/26/24 10:36 Procedure End 04/26/24 12:32 Anesthesia End 04/26/24 12:42 Out of Room 04/26/24 12:42 Into Recovery 04/26/24 12:43 Procedure Start Time: 10:36 Procedure Stop Time: 12:42 Select all DRAINS/GRAFTS/IMPLANTS that apply: Implanted device Implanted device details: ProGrip mesh measuring 10 x 10 cm Estimated Blood Loss: Minimal Specimen collected: No Description of surgery: The patient is a 48-year-old male who presented my office recently with umbilical pain and a bulge. He was diagnosed with an umbilical hernia. I offered him a robotic repair with mesh. We discussed the details of the planned procedure and he wishes to proceed. Patient presents today for surgery. All questions and concerns were addressed. He was brought to the operating room today following informed consent. Preoperative antibiotics were given and a timeout was performed. He was placed supine the operative table with arms outstretched on arm boards. General anesthesia was induced. Once adequately anesthetized his arms were comfortably tucked at his side. The abdomen is then prepped and draped in the usual sterile manner. An 8 mm incision was made on the left side of the abdomen laterally through which a 5 mm trocar was placed optically. The abdomen is then fully insufflated with CO2 gas a 5 mm 0 degree scope was then inserted. There were no signs of bowel or vascular injury next a 8 mm trocar was placed in the left lower quadrant under direct visualization. Another 8 mm trocar was placed in the left upper quadrant also under direct visualization. I then switched out the initial trocar, 8 mm trocar. At this point the da Alexus robot was brought onto the operative field and was successfully docked. The umbilical hernia was visible in the same fairly small and fat-containing. Peritoneum was incised laterally and a some peritoneal plane was developed large enough to accommodate the mesh. Once the area of the hernia was encountered the small fat-containing hernia was then reduced. The fascial defect was probably about 1 and half centimeters. This was then closed with strata fix suture. This closed the defect nicely. Next a 10 x 10 piece of ProGrip mesh was placed in antibiotic solution and then was inserted into the abdomen and this was laid into position. It fit very nicely. After this the peritoneum was then closed using running V-Loc suture. The peritoneum was very thin. But this was successfully closed using 2 sutures. After this the insufflation was allowed to escape. Local anesthetic was injected each of the incisions the incisions were then closed with 5-0 Vicryl. Skin glue was applied as dressing along with an abdominal binder. He was awakened from anesthesia and taken the PACU in good condition. An FORMULATION CHEMIST was utilized as a access services assistant. Her role included prepping the patient, docking the robot, assisting with instrument changes, and skin closure Surgical Findings: See operative note Complications Complications: No Admit VTE Documentation VTE Present on Admission: No VTE Mechan Device Prophylaxis: SCD's VTE Pharm Prophylaxis ordered?: No
--- NOTE | 2024-04-26 13:27 | POSTOPAN2_ITS ---
Anesthesia Postop Eval I Sum Postop Eval Completion status Anesthesia document: Postop Eval 1 completed: Yes Anesthesia Postop Eval I Summary Anesthesia Postop Eval I Summary: Anesthesia Postop Eval I: Assessment Summary Airway patent Yes 04/26/24 12:47 SALESPERSON [email or web address] Spontaneous unlabored Yes 04/26/24 12:47 SALESPERSON [email or web address] respirations Mental status Asleep 04/26/24 12:47 SALESPERSON [email or web address] nausea No 04/26/24 12:47 SALESPERSON [email or web address] Vomiting No 04/26/24 12:47 SALESPERSON [email or web address] Anesthesia Postop Eval I: Fluid Summary Crystalloid volume administer 800 04/26/24 12:47 SALESPERSON [email or web address].CLIFFORD (ml) Colloids volume administered ( ml) Blood Product volume administered (ml) Total IV fluid infused 800 04/26/24 12:47 SALESPERSON [email or web address].CLIFFORD Anesthesia Postop Eval I: Summary Notes Anesthesia Complication No 04/26/24 12:47 SALESPERSON [email or web address].CLIFFORD Anesthesia Complication Comment: Post-operative progress note Anesthesia: Postop Eval II Evaluation Mental status: Awake Pain Level: 0 nausea: No Vomiting: No
--- NOTE | 2024-04-26 13:27 | PCM.POSTANE2 ---
Anesthesia Postop Eval I Sum Postop Eval Completion status Anesthesia document: Postop Eval 1 completed: Yes Anesthesia Postop Eval I Summary Anesthesia Postop Eval I Summary: Anesthesia Postop Eval I: Assessment Summary Airway patent Yes 04/26/24 12:47 CAPTAIN ASSISTANT.[email or web address] Spontaneous unlabored Yes 04/26/24 12:47 CAPTAIN ASSISTANT.CLIFFORD respirations Mental status Asleep 04/26/24 12:47 CAPTAIN ASSISTANT.[email or web address] nausea No 04/26/24 12:47 CAPTAIN ASSISTANT.[email or web address] Vomiting No 04/26/24 12:47 CAPTAIN ASSISTANT.CLIFFORD Anesthesia Postop Eval I: Fluid Summary Crystalloid volume administer 800 04/26/24 12:47 CAPTAIN ASSISTANT.CLIFFORD (ml) Colloids volume administered ( ml) Blood Product volume administered (ml) Total IV fluid infused 800 04/26/24 12:47 CAPTAIN ASSISTANT.CLIFFORD Anesthesia Postop Eval I: Summary Notes Anesthesia Complication No 04/26/24 12:47 CAPTAIN ASSISTANT.CLIFFORD Anesthesia Complication Comment: Post-operative progress note Anesthesia: Postop Eval II Evaluation Mental status: Awake Pain Level: 0 nausea: No Vomiting: No
[2024-04-26] MEDS: Ketorolac 30 MG/ML Syringe IV (13:59)
[2024-04-26] MEDS: Acetaminophen 325 MG Tablet 650 MG PO (14:54)
[2024-04-26] MEDS: oxyCODONE 5 MG Tablet PO (14:54)
== END 2024-04-26 15:57 | disposition home or self-care (01) ==
LOC: SDC 08:52 → AC 08:53
PROVIDERS: PCP Family Medicine; Referring Provider Surgery; Visit Provider Surgery
PROC: (CPT 49591; principal; 2024-04-26 10:15)
DX: K42.9 Umbilical hernia without obstruction or gangrene (principal); K21.9 Gastro-esophageal reflux disease without esophagitis; I10 Essential (primary) hypertension; F17.220 Nicotine dependence, chewing tobacco, uncomplicated; Z79.899 Other long term (current) drug therapy
CPT/HCPCS: 49591; S2900; 00830; 93005; J2405

== ENCOUNTER → 2024-05-08 | Outpatient (CLI) | payer MEDICAID, SELFPAY ==
--- NOTE | 2024-05-08 10:59 | NM_ITS ---
CLINICAL: 48-year-old male with history of right upper quadrant abdominal pain. RADIONUCLIDE HEPATOBILIARY SCINTIGRAPHY COMPARISON: Abdominal ultrasound report 03/30/2024, CT of the abdomen-pelvis report 03/28/2024 FINDINGS: Following the intravenous administration of 5.0 mCi of 99m Tc Mebrofenin, hepatobiliary images reveal: 1. Relatively prompt and homogeneous radiopharmaceutical concentration is noted by a normal sized liver. No parenchymal defects are identified. 2. Gallbladder activity is identified at 15 minutes post radiopharmaceutical administration. 3. Small intestinal tract is observed at 30 minutes following tracer injection. 4. Washout of the radiopharmaceutical by the hepatic parenchyma appears qualitatively normal. Cholecystokinin (0.02 ug/kg) was administered intravenously over a 30-minute period. The post CCK gallbladder ejection fraction calculated at 20 minutes following Cholecystokinin administration was noted to be 46.0 % (normal greater than 35%). During 30 minutes of post CCK imaging, there is no scintigraphic evidence of reflux of the radiotracer into the common hepatic duct or refilling of the gallbladder. There is scintigraphic evidence of post CCK duodenal gastric reflux. NM/Hepatobilliary Img w/Pharm Int IMPRESSION: 1. A gallbladder ejection fraction calculated to be greater than 35% following the administration of Cholecystokinin makes the probability of functional hepatobiliary disease (gallbladder and/or sphincter of Oddi dyskinesia) and/or organic hepatobiliary disease (chronic acalculous cholecystitis and/or cystic duct syndrome) to be low. (Mesfin Calles et al, Journal of Nuclear Medicine 32:1695, 1990). 2. There is scintigraphic evidence of post CCK duodenal-gastric reflux. (Hilario et al, Nucl Med Susan Xim[employer] pg. 35, 1980). Electronically Signed: Jesse Mcgowan DO at 10:48 EST ,
== END | disposition home or self-care (01) ==
LOC: NM 10:50
PROVIDERS: PCP Family Medicine; Referring Provider Family Medicine; Visit Provider Family Medicine
DX: K76.0 Fatty (change of) liver, not elsewhere classified (principal)
CPT/HCPCS: 78227; A9537; J2805

== ENCOUNTER → 2024-07-19 | Outpatient (CLI) | payer MEDICAID, SELFPAY ==
[2024-07-19 10:50] LABS: Absolute Neutrophil Count 4.4 X10^3/uL (2.0-7.7); Basophil# 0.07 X10^3/uL; Basophil% 0.9 % (0-1); Eosinophil# 0.27 X10^3/uL; Eosinophils% 3.6 % (0-5); Hemoglobin 16.4 g/dL (13.0-16.5); Lymphocyte % 26.6 % (19-41); Mean Corp Hgb Conc 33.5 g/dL (32-36); Mean Corpuscular Hgb 29.7 pg (27.0-32.0); Mean Corpuscular Volume 88.6 fL (80-94); Mean Platelet Vol. 9.9 fl (6.2-12.0); Monocyte# 0.68 X10^3/uL; Monocyte% 9.1 % (0-10); NRBC Flagged by Analyzer 0 % (0-5); Neutrophil % 58.6 % (47-70); Platelet Count 273 K/mm3 (150-450); RBC Distribution Width CV 12.4 % (11.6-14.6); RBC Distribution Width SD 40.2 fl (35.1-43.9); Red Blood Count 5.53 M/mm3 (4.6-6.2); White Blood Count 7.5 K/mm3 (4.4-11.0)
[2024-07-19 11:59] LABS: ALB/GLOB Ratio 1.2 RATIO (0.9-2.4); AST(SGOT) 25 U/L (<=37); Alanine Aminotransfer ALT/SGPT 35 U/L (<=46); Albumin, Serum 4.3 g/dL (3.5-5.0); Alkaline Phosphatase 81 U/L (40-129); Anion Gap 13 (5-15); BUN 23 mg/dL (4-19); BUN/Creat Ratio 19.3 RATIO (10-20); Calcium,Total 9.7 mg/dL (7.6-11.0); Carbon Dioxide 21.9 mmol/L (21.0-32.0); Chloride 102 mmol/L (98-108); Cholesterol 230 mg/dL (<=200); EST Glomerular Filtration Rate 74 (>60); Globulin 3.5 g/dL (2.2-4.2); Glucose 108 mg/dL (70-99); High Density Lipoprotein 36 mg/dL; Low Density Lipoprotein Calc. 129 mg/dL; Magnesium 2.2 mg/dL (1.5-2.2); Potassium 4.2 mmol/L (3.3-5.1); Protein, Total 7.7 g/dL (5.9-8.4); Sodium Level 137 mmol/L (133-145); Total Bilirubin 0.58 mg/dL (0.00-1.30); Triglycerides 324 mg/dL; Very Low Density Lipoprotein 65 mg/dL (5-40); Vitamin B12 311 pg/mL (180-914); Vitamin D,25 Hydroxy 18.9 ng/mL (30-100); cholesterol:hdl ratio screen 6.37
== END | disposition home or self-care (01) ==
LOC: MFPLAB 09:27
PROVIDERS: PCP Family Medicine; Referring Provider Family Medicine; Visit Provider Family Medicine
DX: R73.09 Other abnormal glucose (principal); E78.1 Pure hyperglyceridemia
CPT/HCPCS: 36415; 80053; 80061; 82306; 82607; 83036; 83735; 84439; 84443; 85025